=== PATIENT | male | born 2000 | race Caucasian/White ===

== ENCOUNTER 2022-11-20 16:57 | Emergency (ER) | payer OTHER ==
[2022-11-20] MEDS ORDERED: Take Home: Naproxen 500 MG Tab, 4 Tab Pack PO ONE (18:16)
== END 2022-11-20 18:33 | disposition home or self-care (01) ==
LOC: MERGE 16:57 → VM.ED 16:57
DX: S83.91XA Sprain of unspecified site of right knee, initial encounter (principal); M25.461 Effusion, right knee; X50.1XXA Overexertion from prolonged static or awkward postures, initial encounter
CPT/HCPCS: 73562; 99283; A9270